=== PATIENT | female | born 1985 | race Caucasian/White ===

== ENCOUNTER 2016-11-19 08:43 | Outpatient (CLI) | payer OTHER ==
--- NOTE | 2016-11-20 14:35 | DEXA Report ---
DEXA SCAN: 11/19/2016 CLINICAL INDICATION: Personal history of osteopenia. TECHNIQUE: Dual energy x-ray absorptiometry (DXA) was performed on a Remote Assistant system. Regions measured are the AP spine, femoral neck, and, if needed, forearm. COMPARISON: None. In accordance with the International Society for Clinical Densitometry (ISCD) guidelines, data from previous exams may be reanalyzed using current recommendations and techniques. This is done to allow a more accurate basis for comparison with the current study. FINDINGS The data for the lumbar spine is as follows: REGION BMD (g/cm/cm) T-SCORE Z-SCORE L1 1.113 -0.1 -0.3 L2 1.088 -0.9 -1.1 L3 1.287 0.7 0.6 L4 1.237 0.3 0.2 TOTAL 1.187 0.1 -0.1 NOTE: All evaluable vertebrae are used for classification. The data for the hip is as follows: REGION BMD (g/cm/cm) T-SCORE Z-SCORE Neck 0.829 -1.5 -1.5 TOTAL 0.872 -1.1 -1.1 NOTE: The femoral neck or total proximal femur, whichever is lowest, is used for classification. IMPRESSION: THE WHO CLASSIFICATION BASED ON THE INTERNATIONAL REFERENCE STANDARD IS OSTEOPENIA. THE FRACTURE RISK IS INCREASED. RECOMMENDATION: Patients with diagnosis of osteoporosis or osteopenia should have regular bone mineral density assessment. For those eligible for Medicare, routine testing is allowed once every 2 years. Testing frequency can be increased for patients who have rapidly progressing disease or for those who are receiving medical therapy to restore bone mass. COMMENT: World Health Organization (WHO) definitions for osteoporosis and osteopenia: NORMAL BMD: T-score at -1.0 or higher, fracture risk is low. OSTEOPENIA BMD: T-score between -1.0 and -2.5, fracture risk is increased. OSTEOPOROSIS BMD: T-score at -2.5 or lower, fracture risk high. National Osteoporosis Foundation recommends: 1. Obtain adequate dietary calcium (at least 1200 mg per day) and vitamin D (400 -800 international units per day). 2. Participate, as appropriate, in regular weightbearing and muscle- strengthening exercise. 3. Avoid tobacco use and reduce alcohol and caffeine intake. 4. For more detailed information see the website at www.NOF.org. MTDD
== END 2016-11-19 08:44 | disposition home or self-care (01) ==
LOC: DI 08:43
PROVIDERS: ATTEND Physician Assistant
DX: M85.88 Other specified disorders of bone density and structure, other site (principal)
CPT/HCPCS: 77080

== ENCOUNTER 2018-05-20 10:29 | Emergency (ER) | payer OTHER ==
[2018-05-20 10:56] LABS: GLUCOSE, URINE (UA) NEGATIVE (NEGATIVE); KETONES,URINE (UA) 15 mg/dL (NEGATIVE); LEUKOCYTE ESTERASE, URINE TRACE (NEGATIVE); NITRITE,URINE NEGATIVE (NEGATIVE); OCCULT BLOOD,URINE NEGATIVE (NEGATIVE); PH,URINE 5.5 PH (5.0-7.5); PROTEIN,URINE 30 mg/dL (NEGATIVE); UROBILINOGEN,URINE 0.2 (NORMAL) E.U./dL (NORMAL)
[2018-05-20 11:00] LABS: CLARITY,URINE SL. CLOUDY (CLEAR)
[2018-05-20 11:02] LABS: BILIRUBIN,URINE NEGATIVE (NEGATIVE); HCG UR QUAL NEGATIVE; ICTOTEST,URINE NEGATIVE
[2018-05-20 11:06] LABS: BASOPHILS % (AUTO) 0.2 %; EOSINOPHILS % (AUTO) 0.2 %; HGB - HEMOGLOBIN 13.4 g/dL (12.0-16.0); LYMPHOCYTES # (AUTO) 0.7 10^3/uL (1.5-3.5); LYMPHOCYTES % (AUTO) 3.7 %; MEAN CORPUSCULAR HEMOGLOBIN 27.9 pg (27.0-31.0); MEAN CORPUSCULAR HGB CONC 32.5 g/dL (32.0-36.0); MEAN CORPUSCULAR VOLUME 86.1 fL (81.0-99.0); MEAN PLATELET VOLUME 9.7 fL (7.9-10.8); MONOCYTES # (AUTO) 0.4 10^3/uL (0.0-1.0); NEUTROPHILS # (AUTO) 18.6 10^3/uL (1.5-6.6); NEUTROPHILS % (AUTO) 93.9 %; PLT - PLATELET COUNT 356 10^3/uL (130-450); RED BLOOD COUNT 4.79 10^6/uL (4.20-5.40); RED CELL DISTRIBUTION WIDTH 14.4 % (12.0-15.0); WHITE BLOOD COUNT 19.8 x10^3/uL (4.8-10.8)
[2018-05-20 11:08] LABS: BACTERIA,URINE Moderate /HPF (None Seen); MUCUS,URINE Few Strands; RBC,URINE 0-5 /HPF (0-5); SQUAMOUS EPITHELIAL CELL,UR MOD Squamous (<= Few)
[2018-05-20 11:17] LABS: ALBUMIN 3.9 g/dL (3.2-5.5); ALBUMIN/GLOBULIN RATIO 0.9 (1.0-2.2); BILIRUBIN,TOTAL 0.9 mg/dL (0.2-1.0); CALCIUM 9.2 mg/dL (8.5-10.3); CREATININE 0.9 mg/dL (0.4-1.0); TOTAL PROTEIN 8.3 g/dL (6.7-8.2)
--- NOTE | 2018-05-20 11:57 | ED Physician Documentation ---
PD HPI NVD - Stated complaint Stated Complaint: VOMITING - Chief complaint Chief Complaint: Abd Pain - History obtained from History obtained from: Patient - History of Present Illness Timing - onset: Last night (about 2 am) Timing - duration: Hours (8) Timing - details: Abrupt onset Associated symptoms: Abdominal pain (upper abd), Loss of appetite. No: Near syncope / syncope Contributing factors: No: Sick contact, Bad food Improved by: No: Vomiting Worsened by: Eating Similar symptoms before: Has not had sx before Review of Systems Constitutional: denies: Fever, Myalgias Nose: denies: Rhinorrhea / runny nose, Congestion Throat: denies: Sore throat Respiratory: denies: Cough GI: reports: Abdominal Pain, Nausea, Vomiting, Diarrhea. denies: Abdominal Swelling, Constipation, Hematemesis, Bloody / black stool : denies: Dysuria, Frequency Musculoskeletal: denies: Neck pain, Back pain Neurologic: reports: Generalized weakness. denies: Focal weakness, Numbness PD PAST MEDICAL HISTORY - Past Medical History Cardiovascular: None Respiratory: None Neuro: None Endocrine/Autoimmune: None Psych: Depression - Past Surgical History Past Surgical History: Yes - Present Medications Home Medications: Ambulatory Orders Medication Instructions Recorded Confirmed Fluoxetine HCl [Prozac] 40 mg PO DAILY 07/17/13 09/20/15 Albuterol Sulfate [Ventolin Hfa] 2 puffs IH Q6H PRN #1 hfa.aer.ad 09/20/15 Ibuprofen [Motrin] 400 mg PO Q6H PRN #20 tablet 09/20/15 Norethindrone AC-Eth Estradiol 1 tab PO DAILY 09/20/15 09/20/15 [Microgestin 21 1.5-30 Tab] Dicyclomine [Bentyl] 10 mg PO QID PRN #12 capsule 05/20/18 Diphenoxylate/Atropine [Lomotil] 1 each PO QID PRN #12 tablet 05/20/18 Ondansetron Odt [Zofran] 4 mg TL Q6H PRN #10 tablet 05/20/18 - Allergies Allergies/Adverse Reactions: Allergies Allergy/AdvReac Type Severity Reaction Status Date / Time No Known Drug Allergies Allergy Verified 05/20/18 10:31 - Social History Does the pt smoke?: No Smoking Status: Never smoker Does the pt drink ETOH?: Yes Does the pt have substance abuse?: No - Immunizations Immunizations are current?: Yes Immunizations: TDAP >10years/unknown - POLST Patient has POLST: No PD ED PE NORMAL - Vitals Vital signs reviewed: Yes - General General: Alert and oriented X 3, Well developed/nourished - HEENT HEENT: Ears normal, Pharynx benign. No: Moist mucous membranes - Neck Neck: Supple, no meningeal sign, No adenopathy - Cardiac Cardiac: RRR, No murmur - Respiratory Respiratory: Clear bilaterally - Abdomen Abdomen: Normal bowel sounds, Soft, Non distended, No organomegaly, Other (Te nder in the upper the upper abdomen particularly on the right side. There is no percussion or rebound.) Results - Vitals Vitals: Vital Signs - 24 hr 05/20/18 05/20/18 12:18 14:14 Heart Rate 98 90 Respiratory 14 14 Rate Blood Pressure 111/66 112/72 O2 Saturation 98 98 Oxygen O2 Source Room air - Labs Labs: Laboratory Tests 05/20/18 05/20/18 05/20/18 10:50 11:01 11:01 WBC 19.8 H RBC 4.79 Hgb 13.4 Hct 41.3 MCV 86.1 MCH 27.9 MCHC 32.5 RDW 14.4 Plt Count 356 MPV 9.7 Neut # (Auto) 18.6 H Lymph # (Auto) 0.7 L [place] # (Auto) 0.4 Eos # (Auto) 0.0 Baso # (Auto) 0.0 Absolute Nucleated RBC 0.00 Nucleated RBC % 0.0 Sodium 138 Potassium 4.1 Chloride 105 Carbon Dioxide 21 Anion Gap 12.0 BUN 13 Creatinine 0.9 Estimated GFR (MDRD) 73 L Glucose 138 H Calcium 9.2 Total Bilirubin 0.9 AST 23 ALT 16 Alkaline Phosphatase 67 Total Protein 8.3 H Albumin 3.9 Globulin 4.4 H Albumin/Globulin Ratio 0.9 L Lipase 29 Urine Color YELLOW Urine Clarity SL. CLOUDY Urine pH 5.5 Ur Specific [place] >=1.030 H Urine Protein 30 H Urine Glucose (UA) NEGATIVE Urine Ketones 15 H Urine Occult Blood NEGATIVE Urine Nitrite NEGATIVE Urine Bilirubin NEGATIVE Urine Urobilinogen 0.2 (NORMAL) Ur Leukocyte Esterase TRACE H Urine RBC 0-5 Urine WBC 11-25 H Ur Squamous Epith Cells MOD Squamous H Urine Bacteria Moderate H Urine Mucus Few Strands Ur Microscopic Review INDICATED Urine Culture Comments NOT INDICATED Urine HCG, Qual NEGATIVE PD MEDICAL DECISION MAKING - ED course Complexity details: re-evaluated patient (feeling better with IV fluids. Still some nausea but able to take PO fluids. ), considered differential (Sounds likely a viral gastroenteritis though food poisoning would be possible to. She is tender in the upper abdomen and right upper quadrant so consider the possibility of gallbladder and can get ultrasound. We will give some IV fluids as well as antiemetics and antidiarrheals.), d/w patient Departure - Departure Disposition: 01 Home, Self Care Clinical Impression: Nausea vomiting and diarrhea, Dehydration Condition: Stable Record reviewed to determine appropriate education?: Yes Instructions: ED Gastroenteritis Vs Food Poison Follow-Up: Edward Thorne MD [Primary Care Provider] - Prescriptions: Dicyclomine [Bentyl] 10 mg PO QID PRN #12 capsule PRN Reason: Abdominal Pain Diphenoxylate/Atropine [Lomotil] 1 each PO QID PRN #12 tablet PRN Reason: Diarrhea Ondansetron Odt [Zofran] 4 mg TL Q6H PRN #10 tablet PRN Reason: Nausea / Vomiting Comments: Your ultrasound showed a normal gallbladder except some small polyps which are benign. Presume this is food poisoning or a viral gastroenteritis and typically will last a day or 2. Small frequent sips. [place] food as tolerated. Ondansetron if needed for nausea. Lomotil for diarrhea. Use Tylenol if needed for fevers or pains. Add dicyclomine if needed for cramps and pains. Recheck if not better in the next 1-2 days return sooner if worse. Discharge Date/Time: 05/20/18 14:14
[2018-05-20] MEDS ORDERED: ONDANSETRON 4 MG/2 ML VIAL IVP STA (12:01)
[2018-05-20] MEDS ORDERED: SODIUM CHLORIDE 0.9% 1,000 ML IV ONE ×2 (12:01→12:28)
[2018-05-20] MEDS ORDERED: DIPHENOX/ATROPINE 2.5/0.025 MG TABLET PO STA (12:02)
[2018-05-20] MEDS ORDERED: KETOROLAC 15 MG/ML VIAL IVP STA (12:02)
[2018-05-20] MEDS ORDERED: PROCHLORPERAZINE 10 MG/2 ML VIAL IVP STA (13:41)
--- NOTE | 2018-05-20 13:51 | Ultrasound Report ---
Reason: Right upper abd pain and vomiting Procedure Date: 05/20/2018 Accession Number: [id number] / [id number] Procedure: US - Abdomen Limited CPT Code: FULL RESULT: EXAM: ABDOMEN ULTRASOUND LIMITED, RUQ EXAM DATE: 05/20/2018 12:21 PM. CLINICAL HISTORY: Right upper abdominal pain and vomiting. COMPARISON: ABDOMEN LIMITED 09/20/2015 4:58 PM. TECHNIQUE: Real-time scanning was performed with static images obtained. FINDINGS: Liver: Normal in size and echotexture. Right lobe of the liver measures at least 18.2 cm. Main portal vein flow: Hepatopetal. Gallbladder: A total of 4 gallbladder polyps measuring up to 0.3 cm is seen. No stones, wall thickening, or sonographic [place]'s sign. Biliary System: CBD measures 2 mm. No intrahepatic or extrahepatic ductal dilatation. Other: None. IMPRESSION: Gallbladder polyps with no evidence of acute cholecystitis. RADIA
[2018-05-20 14:15] VITALS: BP 112/72
== END 2018-05-20 14:14 | disposition home or self-care (01) ==
LOC: ED 10:29
DX: E86.0 Dehydration (principal); K82.4 Cholesterolosis of gallbladder
CPT/HCPCS: 36415; 76705; 80053; 81001; 81025; 83690; 85025; 96361; 96374; 96375; 99283; A9270; 81003; 87086

== ENCOUNTER 2022-05-29 21:54 | Outpatient (CLI) | payer OTHER ==
--- NOTE | 2022-05-30 10:10 | Ultrasound Report ---
PROCEDURE: Pelvic w/Transvaginal INDICATIONS: LOWER ABDOMINAL PAIN TECHNIQUE: Real-time scanning was performed of the pelvic organs, with image documentation. Endovaginal scanning could not be performed. COMPARISON: None. FINDINGS: Uterus: Uterus is retroverted and normal in size at 7.6 x 3.3 x 4 cm. The myometrium is heterogeneo us. The endometrium not visualized. Ovaries: Not visualized. Other: No pathologic free abdominal or pelvic fluid. IMPRESSION: Endovaginal scanning was not performed due to patient preference. Uterus is unremarkable. Ovaries not visualized. Reviewed by: Bhaskar Cardenas on 05/30/2022 10:08 AM PDT Approved by: Bhaskar Cardenas on 05/30/2022 10:08 AM PDT Station ID: [id number]
== END 2022-05-29 21:55 | disposition home or self-care (01) ==
LOC: DI 21:54
PROVIDERS: ATTEND Student in an Organized Health Care Education/Training Program
DX: R10.30 Lower abdominal pain, unspecified (principal)